=== PATIENT | male | born 1995 | race Two or more races ===

== ENCOUNTER 2024-03-06 13:33 | Outpatient (REF) | payer OTHER, SELFPAY ==
--- NOTE | ~2024-03-06 | MR_ITS ---
EXAMINATION: MR PELVIS WITHOUT CONTRAST CLINICAL INFORMATION: Athletic pubalgia. COMPARISON: None available. TECHNIQUE: MRI without contrast is performed on the pelvis following the athletic pubalgia protocol. FINDINGS: Bone marrow signal is normal. No stress reaction, fracture, or evidence of avascular necrosis. The pubic symphysis appears normal. No acute muscle strain or tear. Specifically, the insertions and origins of the rectus abdominis and adductor muscles at the pubic bones appear normal. No hip joint effusions. Sacroiliac joints appear normal. No adenopathy. No free pelvic fluid. No hernia. MR/MR pelvis wo con IMPRESSION: Unremarkable examination. No muscle strain or tear.
== END 2024-03-06 13:34 | disposition home or self-care (01) ==
LOC: HO.MRI 13:33
PROVIDERS: Visit Provider Family Medicine
DX: R10.9 Unspecified abdominal pain (principal)
CPT/HCPCS: 72195